=== PATIENT | male | born 1955 | race African-American/Black ===

== ENCOUNTER 2022-09-26 03:56 | Emergency (ER) | payer SELFPAY ==
[~2022-09-26] VITALS: Ht 177.8 cm; Wt 70.0 kg
[2022-09-26 03:59] VITALS: TEMP 98.4; O2SAT 99
[2022-09-26] MEDS ORDERED: IBUPROFEN 600MG TABLET PO STA (07:06)
[2022-09-26 07:35] VITALS: BP 118/80; PULSE 90; RESP 16
[2022-09-26] MEDS ORDERED: IBUP-2029 MT (08:31)
== END 2022-09-26 09:36 | disposition home or self-care (01) ==
LOC: ER 03:56
DX: S40.012A Contusion of left shoulder, initial encounter (principal); S09.90XA Unspecified injury of head, initial encounter; Y08.89XA Assault by other specified means, initial encounter; Y93.89 Activity, other specified; Y92.89 Other specified places as the place of occurrence of the external cause; Y99.8 Other external cause status
CPT/HCPCS: 71045; 73030; 99284; A4565